=== PATIENT | male | born 1980 | race Caucasian/White ===

== ENCOUNTER 2022-02-13 23:16 | Emergency (ER) | payer BC, SELFPAY ==
[2022-02-13 23:31] VITALS: BP 167/96; PULSE 103; RESP 14; TEMP 36.4; O2SAT 97; BMI 7158.4
--- NOTE | 2022-02-14 00:22 | ED.ALCOHOL ---
HPI - Alcohol General Chief Complaint: ETOH/Substance Use Stated Complaint: Etoh Time Seen by Provider: 02/13/22 23:32 Source: patient and RN notes reviewed Mode of arrival: EMS Limitations: altered mental status (Alcohol intoxication) History of Present Illness HPI narrative: 41-year-old male who presents emergency department for evaluation of altered mental status. The information came from the ED nurse who obtained information from EMS. Apparently the patient was found passed out but there was no other details available at this time. Patient told me that he is from [place]. He states that he was at a bar with friends and he was trying to get home but cannot recount any details as to how he got to the emergency department or what he is here. He does admit to drinking alcohol but cannot quantify how much alcohol he was drinking. He does appear to be acutely intoxicated. He denies headache neck pain, chest pain or abdominal pain. He denies nausea or vomiting. MD complaint: alcohol intoxication Last drink: Hours (ago) Amount of alcohol consumed: Unknown Chronic alcohol use: No Previous visits for alcohol intoxication: No Recent trauma: No Associated symptoms: denies other symptoms Related Data Allergies Allergy/AdvReac Type Severity Reaction Status Date / Time No Known Allergies Allergy Verified 02/14/22 00:36 Review of Systems Review of Systems: Yes all other systems are reviewed and are negative [facility] Past Medical History [facility] Narrative: Past medical history: None. Past surgical history: None. Social history: He denies tobacco use. He does admit to drinking alcohol at a bar with friends prior to coming to the emergency department. He denies drug use. He told me he lives in [place] and part of the year he lives in [place]. Social History Social History Advance Directives: No Advance Directives Information Provided: Yes Physical Exam ED Vital Signs: Vital Signs - 24 hr 02/13/22 23:31 02/14/22 01:24 Temperature 97.6 F 97.4 F Pulse Rate 103 H 97 Respiratory Rate 14 15 Blood Pressure 167/96 H 127/69 Pulse Oximetry 97 93 Oxygen Delivery Method Room Air Room Air BMI result Body Mass Index 7158.4 Const Other: Patient is awake, he was alert. Does have a strong odor of alcohol on his breath. He does slur his speech and does appear to be acutely intoxicated Orientation/consciousness: oriented to person HENMT Head: Yes normal to inspection, Yes normocephalic and Yes atraumatic Ears: external ears normal General nose exam: Normal external nose present Face and sinus: Yes normal facial exam Mouth: Normal oral and palatal mucosa present Throat: Yes posterior oropharynx normal Eyes General: appearance normal, both eyes and all related structures Pupils: Equal, round and reactive pupils present Neck Neck: Yes normal visual inspection, Yes no lymphadenopathy, Yes trachea midline and Yes supple Chest Chest palpation & inspection: normal inspection of the chest and normal palpation of entire chest wall Resp Effort & Inspection: normal respiratory effort and able to speak in complete sentences Auscultation: clear to auscultation bilaterally Cardio Rate: regular rate Rhythm: regular rhythm Heart sounds: S1 normal heart sound present, S2 normal heart sound present and no murmurs GI Inspection: Yes normal to inspection Palpation (GI): Soft to palpation, nontender and no guarding Auscultation: normal bowel sounds General: Yes no CVA tenderness Back/Spine/Pelvis Back: no CVA tenderness Skin General skin exam: no rashes or lesions noted Neuro General: oriented to person Cranial nerves: Yes CN's II-XII intact bilaterally and Yes Equal, round and reactive pupils present Cognition (Neuro): normal cognition Motor exam (neuro): 5/5 motor strength present throughout Extrem General: Yes normal to inspection Psych Appearance: grossly normal Speech and movement: Slurred speech present (Secondary to EtOH) Affect: normal affect Attitude: cooperative Course Course Course Narrative: 41-year-old male who presents emergency department for evaluation of change in mental status. Paramedics report that the patient was found passed out but I do not have any details as to where he was found or by whom. The patient is awake but does appear to be acutely intoxicated. He does admit to drinking alcohol this evening at a bar with his friends. The patient has no complaints. His physical examination is consistent with his alcohol intoxication but is otherwise unremarkable. I do not see any obvious evidence of head trauma or other injury. At this point I do not think the patient needs a CT scan or other x-rays. Also I do not think that he has a laboratory evaluation at the we can observe urine to the emergency department until he is sober. 0306: Start physician observation: The patient still appears to be clinically intoxicated, he is cooperative and is willing to stay in the emergency department until he is sober. Therefore the patient will be placed in physician observation. At the end of my shift, the patient's care was turned over to my colleague, Dr. Jamshid Avery. Discharge Plan Discharge Clinical Impression: Alcoholic intoxication Patient Disposition: Still a Patient Instructions: Alcohol Intoxication (ED) Additional Instructions: Follow-up with your doctor in 2 days. Please return to the emergency department if your symptoms get worse or if you develop any symptoms that are concerning to you.
--- NOTE | 2022-02-14 01:11 | PC.NURSE ---
Pt assisted to the bathroom.
[2022-02-14 01:24] VITALS: BP 127/69; PULSE 97; RESP 15; TEMP 36.3; O2SAT 93
--- NOTE | 2022-02-14 02:41 | PC.NURSE ---
Pt sleeping. Breaths even and unlabored with equal chest rises. Will continue to monitor.
[2022-02-14 03:29] VITALS: BP 130/68; PULSE 100; RESP 16; TEMP 36.6; O2SAT 93
--- NOTE | 2022-02-14 05:09 | PC.NURSE ---
reviewed discharge instructions with pt, pt verbalized understanding.
== END 2022-02-14 05:10 | disposition home or self-care (01) ==
PROVIDERS: Emergency Provider Internal Medicine
DX: F10.129 Alcohol abuse with intoxication, unspecified (principal); Y90.9 Presence of alcohol in blood, level not specified; Z71.41 Alcohol abuse counseling and surveillance of alcoholic
CPT/HCPCS: 99284